=== PATIENT | female | born 1975 | race Caucasian/White ===

== ENCOUNTER 2023-08-22 12:23 | Outpatient (CLI) | payer OTHER, SELFPAY ==
--- NOTE | ~2023-08-22 | MMUS_ITS ---
EXAMINATION: MM diagnostic ruperto BI w izaiah, US breast RT limited HISTORY: Palpable mass in the upper outer quadrant of the right breast TECHNIQUE: Craniocaudal, mediolateral, and mediolateral oblique 3-D tomosynthesis images of the ian ts were performed and synthetic 2-D images were generated. CAD analysis was submitted and interpreted . High resolution limited right breast ultrasound was performed. COMPARISON: No prior mammogram is currently available for comparison at this institution. BREAST PARENCHYMAL COMPOSITION: The breasts are heterogeneously dense, which may obscure small masses . FINDINGS: MAMMOGRAPHIC FINDINGS: Right breast: There is a 2.3 cm oval, low-density, obscured mass in the posterior third of the outer right breast at the 9:00 location 9 cm from the nipple corresponding to the palpable abnormality of c oncern. No suspicious calcification or architectural distortion are identified. Left breast: There are regional calcifications in the posterior third of the upper outer quadrant of the breast, some of which appear to be a punctate, some milk of calcium, and others indeterminate. No suspicious mass or architectural distortion are identified. ULTRASOUND: There is a 1.9 cm cyst at the 10:00 location 8 cm from the nipple corresponding to the palpable abnor mality of concern and mammographic finding. There is a 9 mm x 5 mm oval, circumscribed, parallel, hyp oechoic mass with no posterior features or internal vascularity at the 10:00 location, 7 cm from the nipple in the right breast. IMPRESSION: 1. Simple cyst of the right breast corresponding to the palpable abnormality of concern. 2. Probably benign sonographically detected mass at the 10:00 location, 7 cm from the nipple in the r ight breast. In the absence of prior imaging demonstrating stability, follow-up targeted ultrasound i n six months to be recommended. 3. Indeterminate calcifications in the upper outer quadrant of the left breast which may reflect the patient's baseline however, no comparison is currently available. BI-RADS Category 0: Incomplete: Needs comparison with prior mammograms. Reviewed, dictated and finalized at location A. IMPRESSION: 1. Simple cyst of the right breast corresponding to the palpable abnormality of concern. 2. Probably benign sonographically detected mass at the 10:00 location, 7 cm fr om the nipple in the right breast. In the absence of prior imaging demonstratin g stability, follow-up targeted ultrasound in six months to be recommended. 3. Indeterminate calcifications in the upper outer quadrant of the left breast which may reflect the patient's baseline however, no comparison is currently av ailable. BI-RADS Category 0: Incomplete: Needs comparison with prior mammograms.
== END 2023-08-22 12:24 | disposition home or self-care (01) ==
PROVIDERS: PCP Family Medicine Adolescent Medicine; Visit Provider Nurse Practitioner Family
DX: N63.11 Unspecified lump in the right breast, upper outer quadrant (principal)
CPT/HCPCS: 76642; 77062; 77066; G0279